=== PATIENT | female | born 1990 | race Caucasian/White ===

== ENCOUNTER 2023-12-10 02:21 | Inpatient (IN) | payer OTHER ==
[2023-12-10 02:37] VITALS: BMI 22.3
[2023-12-10 04:06] LABS: HEMATOCRIT 26.4 % (32.4-45.2); HEMOGLOBIN 9.1 GM/dL (10.7-15.3); MCH 31.5 pg (25.7-33.7); MCHC 34.3 g/dl (32.0-36.0); MEAN CELL VOLUME 91.9 fl (80-96); MEAN PLT VOLUME 6.4 fl (7.5-11.1); PLATELET COUNT 359 10^3/uL (134-434); RBC 2.88 M/mm3 (3.60-5.2); WHITE BLOOD COUNT 11.4 K/mm3 (4.0-10.0)
[2023-12-10 04:14] LABS: INR 0.97 (0.83-1.09); PROTHROMBIN TIME (PATIENT) 11.2 SEC (9.7-13.0)
[2023-12-10 04:33] LABS: POTASSIUM 4.4 mmol/L (3.5-5.1)
[2023-12-10 04:35] LABS: CALCIUM 7.6 mg/dL (8.5-10.1)
[2023-12-10 04:36] LABS: ALBUMIN 2.6 g/dl (3.4-5.0); BLOOD UREA NITROGEN 14.4 mg/dL (7-18)
[2023-12-10 04:38] LABS: CREATININE 0.6 mg/dL (0.55-1.3)
[2023-12-10] MEDS ORDERED: ACETAMINOPHEN INJECTION 100 ML IVPB ONE (04:39)
[2023-12-10] MEDS: ACETAMINOPHEN 1000 MG/100 ML BAG IVPB ONE (04:39)
[2023-12-10 04:41] LABS: BILIRUBIN,TOTAL 0.4 mg/dL (0.2-1)
[2023-12-10 05:43] LABS: EPI CELLS >36 /uL (0-25.1); HYALINE CASTS 73 /uL (0-3.1); URINE APPEARANCE TURBID; URINE BILIRUBIN 1+ (NEGATIVE); URINE COLOR RED; URINE GLUCOSE (UA) NEGATIVE (NEGATIVE); URINE KETONE NEGATIVE (NEGATIVE); URINE LEUK ESTERASE 1+ (NEGATIVE); URINE NITRITE POSITIVE (NEGATIVE); URINE PROTEIN 2+ (NEGATIVE); URINE UROBILINOGEN 0.2 mg/dL (0.2-1.0); URINE WBC 473 /uL (0-25.8)
[2023-12-10] MEDS ORDERED: CEFTRIAXONE 1 GM/50 ML BAG ONE (06:06)
[2023-12-10] MEDS: CEFTRIAXONE 1 GM in DEXTROSE 5%-WATER - 50 ML IVPB ONE (06:13)
[2023-12-10 06:22] LABS: ANISOCYTOSIS 3+; MACROCYTOSIS 0; ROULEAU 2+
[2023-12-10] MEDS ORDERED: LABETALOL HCL 100 MG TABLET (FP) ONE ×2 (06:31→14:55)
[2023-12-10] MEDS: LABETALOL HCL 100 MG TABLET (FP) PO ONE ×2 (06:42→14:57)
[2023-12-10 08:12] LABS: MAGNESIUM 2.5 mg/dL (1.8-2.4)
[2023-12-10 08:12] LABS: URINE RBC 19626.1 /uL (0-23.9)
[2023-12-10 08:13] LABS: URINE BACTERIA 22.3 /uL (0-1359)
[2023-12-10] MEDS: morphine CARPU-JECT 2 MG/1 ML DISP.SYRIN IVPUSH ONE (08:15)
[2023-12-10] MEDS ORDERED: BENZOCAINE 20% 57 GM BOTTLE TP PRN (09:00)
[2023-12-10] MEDS ORDERED: WITCH HAZEL 50% (TUCKS) 40 PAD/JAR PAD TP PRN (09:00)
[2023-12-10] MEDS ORDERED: BISACODYL 10 MG SUPP.RECT RC PRN (09:00)
[2023-12-10] MEDS ORDERED: METHYLERGONOVINE MALEATE 0.2 MG/1 ML AMP IM PRN (09:00)
[2023-12-10] MEDS ORDERED: BENZOCAINE 28 GM HEMORRHOIDAL OINTMENT TP PRN (09:00)
[2023-12-10] MEDS ORDERED: ACETAMINOPHEN 325 MG TABLET (FP) PO PRN (09:00)
[2023-12-10] MEDS ORDERED: IBUPROFEN 600 MG TABLET (FP) PO PRN (09:00)
[2023-12-10] MEDS ORDERED: MAGNESIUM 4GM/H20 - 4 GM/100 ML IVPB IVPB ONE ×2 (09:15→10:14)
[2023-12-10] MEDS: LACTATED RINGERS SOLUTION 1,000 ML/1,000 ML INFUS.BAG IV SCH ×2 (09:17→11:00)
[2023-12-10] MEDS ORDERED: MAGNESIUM SULFATE 20GM/500ML - 20 GM/500 ML INFUS.BAG ONE ×2 (10:14→23:21)
[2023-12-10] MEDS: MAGNESIUM 4GM/H20 - 4 GM/100 ML IVPB IVPB ONE (10:27)
[2023-12-10] MEDS: MAGNESIUM SULFATE 20GM/500ML - 20 GM/500 ML INFUS.BAG IV SCH (11:00)
[2023-12-10] MEDS: FERROUS SO4 325 MG TABLET (FP) PO SCH (11:45)
[2023-12-10] MEDS: PRENATAL VITAMINS W/ FOLIC ACID TABLET (FP) PO SCH (11:45)
[2023-12-10] MEDS ORDERED: PRENATAL VITAMINS W/ FOLIC ACID TABLET (FP) PO ONE (11:51)
[2023-12-10] MEDS ORDERED: FERROUS SO4 325 MG TABLET (FP) ONE (11:51)
[2023-12-10 15:55] LABS: MAGNESIUM 5.7 mg/dL (1.8-2.4)
[2023-12-10] MEDS ORDERED: LABETALOL HCL 200 MG TABLET (FP) PO SCH (18:00)
[2023-12-10] MEDS: LABETALOL HCL 200 MG TABLET (FP) PO SCH (18:11)
[2023-12-10] MEDS ORDERED: LABETALOL HCL 200 MG TABLET (FP) ONE (18:12)
[2023-12-10 21:10] LABS: MAGNESIUM 6.6 mg/dL (1.8-2.4)
[2023-12-11] MEDS ORDERED: FERROUS SO4 325 MG TABLET (FP) ONE (00:12)
[2023-12-11 02:47] LABS: CHLORIDE 107 mmol/L (98-107); POTASSIUM 4.1 mmol/L (3.5-5.1); SODIUM 140 mmol/L (136-145)
[2023-12-11 02:49] LABS: ALBUMIN 2.5 g/dl (3.4-5.0); ANION GAP 6 mmol/L (4-13); CO2 27 mmol/L (21-32); GLUCOSE,RANDOM 104 mg/dL (74-106)
[2023-12-11 02:52] LABS: CREATININE 0.6 mg/dL (0.55-1.3); SGOT/AST 48 U/L (15-37); SGPT/ALT 95 U/L (13-61)
[2023-12-11 02:54] LABS: BILIRUBIN,TOTAL 0.4 mg/dL (0.2-1)
[2023-12-11 02:55] LABS: ALK PHOS 137 U/L (45-117)
[2023-12-11 03:04] LABS: CALCIUM 6.6 mg/dL (8.5-10.1); MAGNESIUM 6.9 mg/dL (1.8-2.4)
[2023-12-11] MEDS ORDERED: LABETALOL HCL 200 MG TABLET (FP) ONE ×2 (05:43→10:03)
[2023-12-11] MEDS: LABETALOL HCL 200 MG TABLET (FP) PO ONE ×2 (05:45→18:25)
[2023-12-11 08:23] LABS: CHLORIDE 106 mmol/L (98-107); POTASSIUM 4.3 mmol/L (3.5-5.1); SODIUM 138 mmol/L (136-145)
[2023-12-11 08:28] LABS: ALBUMIN 2.6 g/dl (3.4-5.0); ANION GAP 6 mmol/L (4-13); BLOOD UREA NITROGEN 6.3 mg/dL (7-18); CO2 26 mmol/L (21-32); GLUCOSE,RANDOM 96 mg/dL (74-106)
[2023-12-11 08:31] LABS: CREATININE 0.6 mg/dL (0.55-1.3); SGOT/AST 44 U/L (15-37); SGPT/ALT 91 U/L (13-61)
[2023-12-11 08:32] LABS: BASO % 0.2 % (0-2.0); EOS % 1.7 % (0-4.5); HEMATOCRIT 22.6 % (32.4-45.2); HEMOGLOBIN 7.8 GM/dL (10.7-15.3); MCH 31.8 pg (25.7-33.7); MCHC 34.6 g/dl (32.0-36.0); MEAN CELL VOLUME 91.9 fl (80-96); MEAN PLT VOLUME 6.3 fl (7.5-11.1); MONO % 7.7 % (3.8-10.2); NEUT % 71.4 % (42.8-82.8); PLATELET COUNT 456 10^3/uL (134-434); RBC 2.46 M/mm3 (3.60-5.2); RDW 14.4 % (11.6-15.6); WHITE BLOOD COUNT 9.3 K/mm3 (4.0-10.0)
[2023-12-11 08:32] LABS: BILIRUBIN,TOTAL 0.5 mg/dL (0.2-1); TOT PROT 6.2 g/dl (6.4-8.2)
[2023-12-11 08:34] LABS: ALK PHOS 139 U/L (45-117)
[2023-12-11 08:35] LABS: CALCIUM 6.9 mg/dL (8.5-10.1)
[2023-12-11] MEDS ORDERED: PRENATAL VITAMINS W/ FOLIC ACID TABLET (FP) PO ONE (10:04)
[2023-12-11 18:17] VITALS: TEMP 98.4
[2023-12-11 20:47] LABS: BASO % 0.2 % (0-2.0); EOS % 1.6 % (0-4.5); HEMATOCRIT 26.3 % (32.4-45.2); LYMPH % 17.3 % (8-40); MCH 31.3 pg (25.7-33.7); MEAN PLT VOLUME 6.1 fl (7.5-11.1); MONO % 7.4 % (3.8-10.2); NEUT % 73.5 % (42.8-82.8); PLATELET COUNT 442 10^3/uL (134-434); RBC 2.86 M/mm3 (3.60-5.2); RDW 14.3 % (11.6-15.6); WHITE BLOOD COUNT 8.8 K/mm3 (4.0-10.0)
[2023-12-11 21:06] LABS: POTASSIUM 4.4 mmol/L (3.5-5.1)
[2023-12-11 21:08] LABS: ALBUMIN 2.8 g/dl (3.4-5.0); CALCIUM 7.8 mg/dL (8.5-10.1)
[2023-12-11 21:09] LABS: BLOOD UREA NITROGEN 10.3 mg/dL (7-18)
[2023-12-11 21:11] LABS: CREATININE 0.7 mg/dL (0.55-1.3)
[2023-12-11 21:13] LABS: BILIRUBIN,TOTAL 0.4 mg/dL (0.2-1); TOT PROT 6.6 g/dl (6.4-8.2)
[2023-12-11] MEDS: SENNOSIDES/DOCUSATE COMBO (SENNA PLUS) TABLET (UD) PO PRN (21:24)
[2023-12-11 21:26] VITALS: RESP 17
[2023-12-11 22:13] VITALS: BP 133/95; PULSE 76
== END 2023-12-11 22:37 | disposition home or self-care (01) | DRG 776 ==
LOC: JER 02:21 → JERBED 08:50 → JLDR 10:08 → J3W 12-11 10:15
PROVIDERS: ADMIT Obstetrics & Gynecology; ATTEND Obstetrics & Gynecology
DX: O14.15 Severe pre-eclampsia, complicating the puerperium (principal); O87.0 Superficial thrombophlebitis in the puerperium
CPT/HCPCS: 36415; 80053; 81003; 83735; 85025; 85379; 85610; 85730; 86850; 86900; 86901; 87086; 93005; 93010; 93971; 99285-25; J0131